=== PATIENT | male | born 1990 | race Caucasian/White ===

== ENCOUNTER 2017-05-25 19:29 | Emergency (ER) | payer BC ==
[2017-05-25] MEDS ORDERED: Dexamethasone IV* 4 MG/ML 1 ML (4 MG) IV SLOW PU ONE (20:21)
[2017-05-25] MEDS ORDERED: D5NS 0.9% 1000 ML BAG* 1,000 ML IV.FLUID IV ONE (20:23)
[2017-05-25] MEDS ORDERED: Clindamycin 600 MG IVPREMIX(* 600 MG/50 ML SDV IV ONE (20:24)
[2017-05-25] MEDS ORDERED: Morphine INJ* 4 MG/ML 1 ML CARPUJECT IV ONE (20:25)
--- NOTE | 2017-05-25 20:46 | ED ---
Throat Pain/Nasal Congestion - HPI Summary HPI Summary: Patient presents to the ED with CC of throat pain. He was dx last week with strep throat (although no strep swab was obtained) and given amoxicillin. He is sent here by [facility] today with a dx of peritonsillar abscess to the left side with associated pain, swelling and ear pain. Denies difficulty swallowing. +odynophagia. Denies fevers, sweats or chills. Has been feeling otherwise well. Denies medications. Has not tried any OTC to improve symptoms. Eating and drinking OK. Denies abd pain. VS stable on arrival. Denies drooling or muffled voice. - History of Current Complaint Chief Complaint: EDThroatPain Time Seen by Provider: 05/25/17 19:38 Hx Obtained From: Patient Onset/Duration: Sudden Onset Severity: Moderate Associated Signs And Symptoms: Negative: Dysphagia, FB Sensation, Drooling - Epiglottits Risk Factors Epiglottis Risk Factors: Negative - Allergies/Home Medications Allergies/Adverse Reactions: Allergies Allergy/AdvReac Type Severity Reaction Status Date / Time No Known Allergies Allergy Verified 05/25/17 19:36 PMH/Surg Hx/FS Hx/Imm Hx Previously Healthy: Yes - Immunization History Date of Tetanus Vaccine: utd Date of Influenza Vaccine: none Hx Pertussis Vaccination: No Immunizations Up to Date: Yes Infectious Disease History: No Infectious Disease History: Denies: Traveled Outside the [place] in Last 30 Days - Social History Occupation: Employed Full-time Lives: With Family Alcohol Use: Occasionally Hx Substance Use: No Substance Use Type: Reports: None Hx Tobacco Use: No Smoking Status (MU): Never Smoked Tobacco Review of Systems Constitutional: Negative Negative: Fever, Chills, Fatigue, Skin Diaphoresis Eyes: Negative Positive: Sore Throat, Ear Ache Cardiovascular: Negative Respiratory: Negative Positive: no symptoms reported, see HPI Musculoskeletal: Negative Neurological: Negative Psychological: Normal All Other Systems Reviewed And Are Negative: Yes Physical Exam Triage Information Reviewed: Yes Vital Signs On Initial Exam: Initial Vitals Temp Pulse Resp BP Pulse Ox 99.2 F 81 16 132/88 97 05/25/17 19:34 05/25/17 19:34 05/25/17 19:34 05/25/17 19:34 05/25/17 19:34 Vital Signs Reviewed: Yes Appearance: Positive: Well-Appearing, Well-Nourished Skin: Positive: Warm, Skin Color Reflects Adequate Perfusion Head/Face: Positive: Normal Head/Face Inspection Eyes: Positive: EOMI, ANTONIO, Conjunctiva Clear ENT: Positive: Pharyngeal erythema, TM red - L, Tonsillar swelling, Tonsillar exudate, Other - uvula displaced to the R. Negative: Nasal congestion, Nasal drainage, Trismus, Muffled voice, Hoarse voice, Dental tenderness, Sinus tenderness, Uvula midline Neck: Positive: Supple, No Lymphadenopathy Respiratory/Lung Sounds: Positive: Clear to Auscultation, Breath Sounds Present Cardiovascular: Positive: RRR, Pulses are Symmetrical in both Upper and Lower Extremities Musculoskeletal: Positive: Normal, Strength/ROM Intact Neurological: Positive: Speech Normal Psychiatric: Positive: Normal, Affect/Mood Appropriate - Vita Coma Scale Coma Scale Total: 15 Diagnostics - Vital Signs Vital Signs Temp Pulse Resp BP Pulse Ox 05/25/17 19:34 99.2 F 81 16 132/88 97 - Laboratory Result Diagrams: 05/25/17 20:40 05/25/17 20:40 Lab Statement: Any lab studies that have been ordered have been reviewed, and results considered in the medical decision making process. EENT Course/Dx - Course Course Of Treatment: During the course of treatment, obtained strep swab and throat culture. Pharyngeal erythema with weiss white ulceration to the L posterior pharynx with enlargement to the anterior space abscess appearing as a swollen and fluctuant L tonsil with deviation of the uvula to Right. L swelling of the anterior pillar and soft palate is present. No drooling is noted to suggest epiglottitis. Cervical and submandibular lymphadenopathy are not appreciated. No trismus. No stridor, tachypnea or neck stiffness present. Airway patent. Denies dysphagia. Endorses odynophagia to the L side. Patient is given 1L D5NS. 16mg Decadron and 600mg IV clindamycin per ENT protocol for ED peritonsillar abscess treatment. Morphine 4mg IV for pain and magic mouth wash. Given ENT follow up for any worsening symptoms. Patient is to follow up with ENT in [place] around their area. He is not referred to ENT here because he does not live here. I have advised he follow up if symptoms are not improved by 24 hours. He is agreeable to this. - Differential Diagnoses Differential Diagnoses: Peritonsillar Ulcer, Tonsilitis - Diagnoses Provider Diagnoses: Peritonsillar abscess Discharge - Discharge Plan Condition: Stable Disposition: HOME Prescriptions: Clindamycin Cap(NF) [Clindamycin Cap 300 mg Cap(NF)] 300 mg PO Q6H #56 cap predniSONE TAB* [Deltasone TAB*] 50 mg PO DAILY #5 tab MDD 1 Patient Education Materials: Peritonsillar Abscess (ED) Referrals: No Primary Care Phys,NOPCP [Primary Care Provider] - Additional Instructions: Clindamycin four times daily for 14 days Prednisone 50mg daily in the MORNING for 5 days Cepacol tabs OTC ibupfofen and tylenol for discomfort For any pain not well controlled - take the prescription pain medication as needed How can I manage my symptoms? Use lozenges, ice, soft foods, or popsicles to soothe your throat. Drink juice, milk shakes, or soup if your throat is too sore to eat solid food. Drinking liquids can also help prevent dehydration. Gargle with salt water. Mix teaspoon salt in a 1 cup of warm water and gargle. This may help reduce swelling in your throat. Do not smoke. Nicotine and other chemicals in cigarettes and cigars can cause lung damage and make your symptoms worse. Ask your healthcare provider for information if you currently smoke and need help to quit. E-cigarettes or smokeless tobacco still contain nicotine. Talk to your healthcare provider before you use these products.
[2017-05-25 20:53] LABS: ABS Basophils 0 10^3/ul (0-0.2); ABS Eosinophils 0.2 10^3/ul (0-0.6); ABS Lymphocytes 1.5 10^3/ul (1.0-4.8); ABS Monocytes 0.6 10^3/ul (0-0.8); ABS Neutrophils 5.4 10^3/ul (1.5-7.7); ABS Nucleated RBC 0 10^3/ul; Hematocrit 42 % (42-52); Hemoglobin 14.5 g/dl (14.0-18.0); Lymphocyte % 19.8 % (25-47); Mean Corpuscular HGB Conc 35 g/dl (31-36); Mean Corpuscular Hemoglobin 30 pg (27-31); Mean Corpuscular Volume 88 fL (80-94); Mean Platelet Volume 7 um3 (7.4-10.4); Nucleated Red Blood Cells % 0; Platelet Count 274 10^3/ul (150-450); Red Blood Count 4.78 10^6/ul (4.0-5.4); Red Cell Distribution Width 13 % (10.5-15); White Blood Count 7.7 10^3/ul (3.5-10.8)
[2017-05-25] MEDS ORDERED: Magic Mouth Was-BEN/MAAL/LIDO SWISH SWAL SCH (21:00)
[2017-05-25 21:07] LABS: EGFR Non-African American 124.9 (>60)
[2017-05-25] MEDS ORDERED: HYDROcodone/ACETAMIN 5-325 MG* 1 TAB PO ONE (23:01)
[2017-05-25 23:38] VITALS: BP 129/71
== END 2017-05-25 23:15 | disposition home or self-care (01) ==
LOC: ED 19:29
DX: J36 Peritonsillar abscess (principal)
CPT/HCPCS: 36415; 80053; 83605; 85025; 86140; 87070; 87651; 96360; 96374; 96375; 99283; A9270-GY; J1100; J2270